=== PATIENT | male | born 1980 | race Caucasian/White ===

== ENCOUNTER 2022-12-13 09:55 | Emergency (ER) | payer MEDICAID, OTHER ==
[2022-12-13 10:32] VITALS: BP 135/93
== END 2022-12-13 11:15 | disposition left against medical advice (07) ==
LOC: EDBD → ED 09:55
DX: Z53.21 Procedure and treatment not carried out due to patient leaving prior to being seen by health care provider (principal)

== ENCOUNTER 2022-12-13 12:25 | Emergency (ER) | payer OTHER, MEDICAID ==
[2022-12-13 12:35] VITALS: BP 165/107
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
== END 2022-12-13 12:44 | disposition home or self-care (01) ==
LOC: EDBD → ED 12:25
DX: Z02.89 Encounter for other administrative examinations (principal); T75.4XXA Electrocution, initial encounter; Z04.3 Encounter for examination and observation following other accident
CPT/HCPCS: 99281; 99283